=== PATIENT | male | born 1940 | race Caucasian/White ===

== ENCOUNTER 2019-02-19 03:28 | Inpatient (IN) | payer BC, OTHER ==
[~2019-02-19] VITALS: Ht 177.8 cm; Wt 80.7 kg
[2019-02-19 04:28] LABS: UA SPECIFIC GRAVITY 1.025 (1.005-1.035); microscopic required? YES; urine erythrocyte TRACE (NEGATIVE)
[2019-02-19 04:30] LABS: BASOPHIL % 0.2 % (0-2); PLATELET COUNT 284 x10^3mcL (130-400)
[2019-02-19 04:31] LABS: RED CELL DISTRIBUTION WIDTH 20.5 % (11.5-14.5)
[2019-02-19 04:38] LABS: CALCIUM 8.6 mg/dL (8.5-10.1); CARBON DIOXIDE 25.6 mmol/L (21-32); CHLORIDE SERUM 104 mmol/L (98-107); CREATININE SERUM 1.2 mg/dL (0.7-1.3); GLUCOSE SERUM 169 mg/dL (74-106); POTASSIUM SERUM 4.4 mmol/L (3.5-5.1); SODIUM SERUM 140 mmol/L (136-145)
[2019-02-19 04:43] LABS: ALKALINE PHOSPHATASE 103 U/L (46-116); AST/SGOT 15 U/L (15-37); BILIRUBIN TOTAL 0.15 mg/dL (0.20-1.00)
[2019-02-19 04:47] LABS: ALBUMIN 1.9 g/dL (3.4-5.0)
[2019-02-19 04:53] LABS: ALT/SGPT 14 U/L (16-63)
[2019-02-19 04:54] LABS: CK-MB 0.8 ng/mL (0-3.6)
[2019-02-19 07:04] LABS: CHOLESTEROL/HDL RATIO 3.3; MAGNESIUM 1.8 mg/dL (1.8-2.4)
[2019-02-19 09:54] VITALS: BP 131/53
[2019-02-19] MEDS ORDERED: COLACE100 MG PO (10:48)
[2019-02-19] MEDS ORDERED: ACETAMINOPHEN-H1 TA1 PO (10:51)
[2019-02-19] MEDS ORDERED: HUMALOG100 U/ML SC (10:55)
[2019-02-19] MEDS ORDERED: TOUJEO300 U/ML SC (10:57)
[2019-02-19] MEDS ORDERED: TRAMADOL HCL50 MG PO (10:58)
[2019-02-19] MEDS ORDERED: BACITRACIN-NEO-1 OIN TP (11:01)
[2019-02-19] MEDS ORDERED: STROVITE ONE1 TAB PO (11:03)
[2019-02-19] MEDS ORDERED: ZINC SULFATE220 MG PO (11:03)
[2019-02-19] MEDS ORDERED: SANOINT TP (11:05)
[2019-02-19] MEDS ORDERED: SANTYL250 U/GM (11:06)
[2019-02-19 12:39] VITALS: BP 133/56
[2019-02-19 17:33] VITALS: BP 150/57
[2019-02-19 19:38] VITALS: BP 141/59
[2019-02-20 05:00] VITALS: BP 114/67
[2019-02-20 06:31] LABS: BASOPHIL % 0.5 % (0-2); PLATELET COUNT 175 x10^3mcL (130-400)
[2019-02-20 06:42] LABS: CARBON DIOXIDE 25.5 mmol/L (21-32); CHLORIDE SERUM 101 mmol/L (98-107); GLUCOSE SERUM 114 mg/dL (74-106); MAGNESIUM 1.8 mg/dL (1.8-2.4); PHOSPHOROUS 4.1 mg/dL (2.5-4.9); POTASSIUM SERUM 4.5 mmol/L (3.5-5.1); SODIUM SERUM 132 mmol/L (136-145)
[2019-02-20 08:05] VITALS: BP 166/64
[2019-02-20 12:05] VITALS: BP 137/55
[2019-02-20 16:40] VITALS: BP 119/68
[2019-02-20 21:09] VITALS: BP 160/55
[2019-02-21] VITALS (8 sets, daily range): BP systolic 104–191; BP diastolic 51–85
[2019-02-21 06:46] LABS: BASOPHIL % 0.4 % (0-2); PLATELET COUNT 208 x10^3mcL (130-400)
[2019-02-21 06:59] LABS: CALCIUM 8.2 mg/dL (8.5-10.1); CARBON DIOXIDE 23.8 mmol/L (21-32); CHLORIDE SERUM 107 mmol/L (98-107); GLUCOSE SERUM 190 mg/dL (74-106); PHOSPHOROUS 4.3 mg/dL (2.5-4.9); POTASSIUM SERUM 5.1 mmol/L (3.5-5.1); SODIUM SERUM 139 mmol/L (136-145)
[2019-02-21 07:24] LABS: RED CELL DISTRIBUTION WIDTH 20.3 % (11.5-14.5)
[2019-02-21 07:37] LABS: MAGNESIUM 1.8 mg/dL (1.8-2.4)
[2019-02-21] MEDS ORDERED: HYDROCHLOROTH12.5 M2 PO (10:50)
[2019-02-21] MEDS ORDERED: LOSARTAN POTASS50 M1 PO (10:50)
[2019-02-21] MEDS ORDERED: METOPROLOL TART25 M1 PO (10:51)
[2019-02-21] MEDS ORDERED: PRO10 PO (10:54)
[2019-02-21] MEDS ORDERED: ESCITALOPRAM10 M1 PO (10:57)
[2019-02-21] MEDS ORDERED: FLORASTOR1 CAP PO (10:58)
[2019-02-21] MEDS ORDERED: FUROSEMIDE40 MG PO (10:59)
[2019-02-21] MEDS ORDERED: GABAPENTIN100 M2 PO (11:01)
[2019-02-22 06:01] VITALS: BP 126/51
[2019-02-22 07:17] LABS: CALCIUM 8.1 mg/dL (8.5-10.1); CHLORIDE SERUM 105 mmol/L (98-107); CREATININE SERUM 1.1 mg/dL (0.7-1.3); GLUCOSE SERUM 221 mg/dL (74-106); POTASSIUM SERUM 4.5 mmol/L (3.5-5.1); SODIUM SERUM 138 mmol/L (136-145)
[2019-02-22 07:55] LABS: BASOPHIL % 0.5 % (0-2); PLATELET COUNT 226 x10^3mcL (130-400)
[2019-02-22 08:35] LABS: RED CELL DISTRIBUTION WIDTH 20.2 % (11.5-14.5)
[2019-02-22 08:36] LABS: rbc morphology (normal/abnorm) ABNORMAL (NORMAL)
[2019-02-22 09:00] VITALS: BP 152/62
[2019-02-22 10:54] VITALS: Ht 177.8 cm; Wt 80.7 kg
[2019-02-22] MEDS ORDERED: LEVAQUIN500 M1 PO (12:34)
[2019-02-22] MEDS ORDERED: CLEOCIN HCL300 MG PO (12:35)
[2019-02-22 13:46] VITALS: BP 121/57
[2019-02-22 14:33] VITALS: BP 121/57
== END 2019-02-22 16:09 | disposition home health service (06) | DRG 564 ==
LOC: ED 03:28 → DU 05:09
PROVIDERS: Emergency Medicine; ADMIT Family Medicine
DX: T87.43 Infection of amputation stump, right lower extremity (principal); A41.9 Sepsis, unspecified organism; J18.9 Pneumonia, unspecified organism; J96.01 Acute respiratory failure with hypoxia; N17.0 Acute kidney failure with tubular necrosis; E43 Unspecified severe protein-calorie malnutrition; R65.20 Severe sepsis without septic shock; I10 Essential (primary) hypertension; E11.51 Type 2 diabetes mellitus with diabetic peripheral angiopathy without gangrene; D64.9 Anemia, unspecified; E11.621 Type 2 diabetes mellitus with foot ulcer; L89.629 Pressure ulcer of left heel, unspecified stage; Y83.5 Amputation of limb(s) as the cause of abnormal reaction of the patient, or of later complication, without mention of misadventure at the time of the procedure; I25.10 Atherosclerotic heart disease of native coronary artery without angina pectoris; Z95.5 Presence of coronary angioplasty implant and graft; Z89.511 Acquired absence of right leg below knee; Z88.0 Allergy status to penicillin; Z90.49 Acquired absence of other specified parts of digestive tract; Z85.51 Personal history of malignant neoplasm of bladder; Z79.4 Long term (current) use of insulin; Z87.891 Personal history of nicotine dependence; Z68.26 Body mass index [BMI] 26.0-26.9, adult; Y92.89 Other specified places as the place of occurrence of the external cause; Z79.899 Other long term (current) drug therapy
CPT/HCPCS: 82962; 87046; 87046-59; 87804; 94150; 97116-GP; G0378; J1644; J1815; J1956; J2405; J3490; J7030; J7620; Q0092